=== PATIENT | female | born 1950 | race Caucasian/White ===

== ENCOUNTER 2016-04-01 11:43 | Emergency (ER) | payer SELFPAY ==
[~2016-04-01] VITALS: Ht 170.2 cm; Wt 70.0 kg
[~2016-04-01 11:43] MED LIST: ASPI81TA3 PO; ATOR20TA38 PO; MULT-552 PO; OMEG-135 PO
[2016-04-01 11:51] VITALS: Ht 170.2 cm; Wt 70.0 kg
== END 2016-04-01 15:30 | disposition left against medical advice (07) ==
LOC: E/R 11:43
DX: Z53.21 Procedure and treatment not carried out due to patient leaving prior to being seen by health care provider (principal)

== ENCOUNTER 2016-04-22 05:35 | Day surgery (SDC) | payer MEDICARE ==
[~2016-04-22] VITALS: Ht 170.2 cm; Wt 69.0 kg
[2016-04-22] VITALS (7 sets, daily range): BP systolic 89–128; BP diastolic 59–66; PULSE 67–76; RESP 16–40; Ht 170.2 cm; Wt 69.0 kg
--- NOTE | 2016-04-22 06:30 | PREOPHP ---
DATE OF ADMISSION: 04/22/2016 HISTORY OF PRESENT ILLNESS: This 66-year-old patient is admitted for elective cataract surgery of t he right eye. The patient has had decreased vision in both eyes over the past years' time and has r ecently had more significant loss of vision in the left eye. She was sent for retinal consultation and found to have wet form of age-related macular degeneration in the left eye. This has been treat ed with Avastin intravitreal injections with improvement over the past 6 weeks' time and patient is scheduled to have some additional injections in order to resolve the problem. The patient also has evidence of mild dry age-related macular degeneration in the right eye. The patient's systemic hist ory is positive for hypertension. CURRENT MEDICATIONS: The patient is currently on lisinopril. ALLERGIES: THERE ARE NO KNOWN ALLERGIES. PHYSICAL EXAMINATION: Visual acuity with best correction is 20/40 in the right eye and finger count ing in the left eye. Slit lamp examination reveals anterior cortical nuclear sclerotic and posterio r subcapsular cataract changes present in both eyes. Applanation tonometry is 16 mmHg. Examination of the retina reveals drusen in the macular region in the right eye. The left eye has evidence of fluid in the macular region. DIAGNOSIS: Cataract, both eyes. PLAN: Cataract extraction with lens implant, right eye. The risks and alternatives to the surgery have been discussed with the patient as well as the potential limitation for full visual correction following cataract surgery due to the macular degeneration in the right eye. The patient understand s this and agrees to proceed with surgery in hopes of improving activities of daily living through i mprovement of visual acuity. Dictated By: BRADFORD NAVAS/STEFANI Conf#: [id number] DID#: [id number]
[2016-04-22] MEDS ORDERED: CIPROFLOXACIN 0.3% 2.5 ML OPH OPER SCH (07:00)
[2016-04-22] MEDS ORDERED: CYCLOPENTOLATE/PHENYLEPH 2 ML OPH OPER SCH (07:00)
[2016-04-22] MEDS ORDERED: TROPICAMIDE 1% 2 ML OPH OPER SCH (07:00)
[2016-04-22] MEDS ORDERED: DICLOFENAC 0.1% 2.5 ML OPH OPER SCH (07:00)
[2016-04-22] MEDS ORDERED: LISI-313 PO (07:37)
[2016-04-22] MEDS ORDERED: CARBACHOL 0.01% 1.5 ML OPH INJ ONE (08:11)
[2016-04-22] MEDS ORDERED: LIDOCAINE 4% (MPF) 5 ML INJ ONE (08:11)
[2016-04-22] MEDS ORDERED: HYALURONATE/CHONDROITIN 1ML OPH INJ ONE (08:11)
[2016-04-22] MEDS ORDERED: DEXAMETHASONE 4 MG/ML 1 ML INJ ONE (08:11)
[2016-04-22] MEDS ORDERED: FENTAnyl 50 MCG/ML VIAL ONE (08:24)
[2016-04-22] MEDS ORDERED: PROPOFOL 20 ML ONE (08:24)
[2016-04-22] MEDS ORDERED: CEFAZOLIN 1 GM INJ INJ ONE (08:46)
[2016-04-22] MEDS ORDERED: METOCLOPRAMIDE 10 MG INJ IV PRN (09:00)
[2016-04-22] MEDS ORDERED: ONDANSETRON 4 MG INJ IV PRN (09:00)
[2016-04-22] MEDS ORDERED: HYDROmorphONE (0.2 MG/ML) 10ML SYG IV PRN ×3 (09:00)
[2016-04-22] MEDS ORDERED: ACETAMINOPHEN 325 MG TAB PO ONE (10:00)
--- NOTE | 2016-04-22 11:59 | OPR ---
DATE OF OPERATION: 04/22/2016 PREOPERATIVE DIAGNOSIS: Cataract, right eye. POSTOPERATIVE DIAGNOSIS: Cataract, right eye. OPERATION PERFORMED: Cataract extraction with lens implant, right eye. SURGEON: Bradford Sanchez MD ANESTHESIA: Guillermina Stoll MD ANESTHESIA: Local standby. PROCEDURE: The patient was brought to the operating room and placed on the table with an IV in plac e and the patient attached to an front desk monitor. Oxygen was given via face mask. After some intravenous sedation was administered, local anesthesia was given using Xylocaine 2% with epinephrine, mixed with Marcaine 0.5%. This was given in a lid block and retrobulbar injection. The patient was then prepped and draped in the usual sterile manner. A wire lid speculum was inserted between the lids of the right eye. A Superblade was used to enter t he anterior chamber at the corneoscleral limbus at the 10:30 o'clock position. A separate incision w as made using a 3.0-mm keratome which entered the corneoscleral junction at the 12 o'clock position. Through this 3-mm opening, an irrigating cystotome was introduced into the anterior chamber. The ch david was filled with Viscoat and an anterior capsulotomy was performed. Balanced salt solution was then used for hydrodissection of the lens. A phacoemulsification handpiece was then brought into th e field and introduced into the anterior chamber. The lens nucleus was emulsified using a deep groov e and cracking the nucleus into quadrants. Following this, each quadrant was aspirated and emulsifie d at the pupillary margin. After this was completed, the irrigation/aspiration handpiece was brought to the field, introduced i nto the posterior chamber, and the lens cortical material was removed. When this was completed, yazmin tional Viscoat was injected into the anterior and posterior chambers. The 3-mm opening had its internal lips enlarged, and then the posterior chamber intraocular lens remington suring 22.5 diopters (Bausch and Lomb model LI61AO) was then injected into the posterior chamber usi ng the lens injector system. After the leading haptic was introduced into the capsular bag and the l ens optic was present in the center of the eye, the injector was removed and the trailing haptic was grasped with non-toothed forceps and introduced into the capsular fold superiorly. A Sinskey hook w as then used to rotate the intraocular lens so that the lips were oriented in the horizontal meridia n. One 10-0 nylon suture was placed across the wound. Prior to tying, the irrigation/aspiration handpiece was reintroduced into the anterior chamber to re move the Viscoat. Miochol was instilled to constrict the pupil, and then the 10-0 nylon suture was t ied. The ends were cut short and then the knot was buried. Then, 0.5 mL of dexamethasone and 0.5 mL of Ancef were injected into the sub-Tenon space in the infe rior fornix. Ciloxan drops were then placed on the surface of the eye. The speculum was removed and a patch was applied. The patient then left the operating room in satisfactory condition. Dictated By: BRADFORD NAVAS/STEFANI Conf#: [id number] DID#: [id number]
== END 2016-04-22 09:32 | disposition home or self-care (01) ==
LOC: SDS 05:35
PROVIDERS: ATTEND Ophthalmology
DX: H25.11 Age-related nuclear cataract, right eye (principal); I10 Essential (primary) hypertension
CPT/HCPCS: 66984; J0690; J1100; J3010; V2632

== ENCOUNTER 2016-11-21 10:06 | Emergency (ER) | payer SELFPAY ==
[~2016-11-21] VITALS: Ht 165.1 cm; Wt 66.5 kg
[~2016-11-21 10:06] MED LIST changes: -ASPI81TA3 PO; -ATOR20TA38 PO; +LISI-313 PO; -MULT-552 PO; -OMEG-135 PO
[2016-11-21 10:15] VITALS: Ht 165.1 cm; Wt 66.5 kg
== END 2016-11-21 11:56 | disposition left against medical advice (07) ==
LOC: FTE 10:06
DX: Z53.21 Procedure and treatment not carried out due to patient leaving prior to being seen by health care provider (principal)

== ENCOUNTER 2016-11-27 13:26 | Emergency (ER) | payer SELFPAY ==
[~2016-11-27] VITALS: Ht 170.2 cm; Wt 66.0 kg
[2016-11-27 13:27] VITALS: Ht 170.2 cm; Wt 66.0 kg
== END 2016-11-27 19:07 | disposition left against medical advice (07) ==
LOC: E/R 13:26
DX: Z53.21 Procedure and treatment not carried out due to patient leaving prior to being seen by health care provider (principal)

== ENCOUNTER 2017-01-28 14:37 | Emergency (ER) | payer MEDICARE ==
[~2017-01-28] VITALS: Ht 170.2 cm; Wt 67.0 kg
[2017-01-28 14:39] VITALS: Ht 170.2 cm; Wt 67.0 kg
[2017-01-28] MEDS ORDERED: METHYLPREDNISOLONE 125 MG INJ IV STA (15:56)
[2017-01-28] MEDS ORDERED: IPRATROPIUM (NEB) 0.5 MG/2.5 ML AMP NEB STA (15:56)
[2017-01-28] MEDS ORDERED: ALBUTEROL 0.083% (NEB) 2.5 MG/3 ML AMP NEB STA (15:56)
--- NOTE | 2017-01-28 16:21 | RADRPT ---
PROCEDURE: XR Chest. CLINICAL INDICATION: chest pain TECHNIQUE: Single frontal view of the chest was obtained COMPARISON: CR CHEST 12/13/2014 FINDINGS: The heart and mediastinum are within normal limits. The lungs are clear. There is no pleural effusion or pneumothorax. RPTAT: AA IMPRESSION: No acute disease. .Eduard Collado MD, MD Date Time Electronically viewed and signed by .Eduard Collado MD, MD on 01/28/2017 16:21 .S/
[2017-01-28 16:23] LABS: BASOPHILS % 0.6 % (0.0-2.0); EOSINOPHILS # 0.2 10^3/ul (0.0-0.5); EOSINOPHILS % 2.4 % (0.0-7.0); HEMATOCRIT 37.4 % (37.0-47.0); LYMPHOCYTES # 2.3 10^3/ul (0.8-2.9); LYMPHOCYTES % 36.4 % (15.0-51.0); MEAN CORPUSCULAR HEMOGLOBIN 30.6 pg (29.0-33.0); MEAN CORPUSCULAR HGB CONC 34.8 g/dl (32.0-37.0); MEAN PLATELET VOLUME 10.5 fl (7.4-10.4); MONOCYTE # 0.4 10^3/ul (0.3-0.9); MONOCYTES % 5.7 % (0.0-11.0); NEUTROPHIL # 3.5 10^3/ul (1.6-7.5); NEUTROPHILS % 54.7 % (39.0-77.0); PLATELET COUNT 276 10^3/UL (140-415); RED BLOOD COUNT 4.25 10^6/ul (4.20-5.40); RED CELL DISTRIBUTION WIDTH 12.2 % (11.5-14.5); WHITE BLOOD COUNT 6.3 10^3/ul (4.8-10.8)
[2017-01-28 16:46] LABS: ANION GAP 14 (8-16); BLOOD UREA NITROGEN 10 mg/dl (7-20); CALCIUM 9.7 mg/dl (8.4-10.2); CARBON DIOXIDE 28 mmol/L (21-31); CHLORIDE 104 mmol/L (97-110); CREATININE 0.75 mg/dl (0.44-1.00); GLUCOSE 98 mg/dl (70-220); POTASSIUM 3.6 mmol/L (3.5-5.1); SODIUM 142 mmol/L (135-144)
[2017-01-28 16:58] LABS: B-TYPE NATRIURETIC PEPTIDE 405 PG/ML (0-125)
[2017-01-28 17:04] LABS: TROPONIN-I < 0.012 ng/ml (0.00-0.12)
--- NOTE | 2017-01-28 17:53 | ERD ---
ER Documentation Chief Complaint Chief Complaint CHEST PAIN/TIGHTNESS, BLURRED VISION, ANXIETY HPI This is a 67-year-old female who presents to the emergency room for evaluation of chest pain. She states that it is located in the center of her chest and is been constant for the past 24 hours with no radiation. The patient states that she does have a history of hypertension and is taking lisinopril 5 mg, she also states that she was on hydrochlorothiazide 25 mg daily however her primary care physician stopped her medication approximately 2 days ago. She states that her primary care physician is Dr. Cruz. She states her chest pain is sometimes worse with exertion, relieved with rest and she came to the ER today for evaluation. This patient is denying any active palpitations or chest pain at this time while sitting down. ROS All systems reviewed and are negative except as per history of present illness. Medications Home Meds Reported Medications Lisinopril* (Lisinopril*) 5 Mg Tablet, 5 MG PO DAILY, #30 TAB 04/22/16 Allergies Allergies: Coded Allergies: No Known Allergy (Unverified , 04/22/16) PMhx/Soc History of Surgery: Yes (gall bladder, right breast cyst, ) Anesthesia Reaction: No Hx Neurological Disorder: No Hx Respiratory Disorders: No Hx Cardiac Disorders: Yes (htn, mitral valve stenosis) Hx Psychiatric Problems: No Hx Miscellaneous Medical Probl: No Hx Alcohol Use: No Hx Substance Use: No Hx Tobacco Use: No Smoking Status: Former smoker Physical Exam Vitals Vital Signs Date Time Temp Pulse Resp B/P Pulse Ox O2 Delivery O2 Flow Rate FiO2 01/28/17 16:42 77 18 125/85 99 Room Air 01/28/17 16:13 80 18 96 21 01/28/17 14:39 98.8 84 18 156/76 100 Physical Exam INITIAL VITAL SIGNS: Reviewed by me GENERAL: The patient is well developed and appropriate for usual state of health in no apparent distress HEENT: Pupils equal, round, and reactive to light. EOMI. There is no scleral icterus. NECK: C-spine is soft and supple, there is no meningismus. There is no cervical lymphadenopathy. LUNGS: Mild end expiratory wheezing bilaterally HEART: Regular rate and rhythm, no murmurs, clicks, rubs or gallops. ABDOMEN: Soft, non-tender, non-distended. There are bowel sounds in all four quadrants. No rebound or guarding. EXTREMITIES: There is no peripheral cyanosis or edema. No focal swelling or erythema. NEUROLOGICAL: The patient moves all four extremities with 5/5 strength. Cranial nerves II - XII are intact. Normal gait. Alert and oriented SKIN: There is no apparent rash or petechiae. HEME/LYMPHATIC: There is no evidence of excessive bruising or lymphedema. PSYCHIATRIC: The patient does not appear anxious or depressed. Result Diagram: 01/28/17 1605 01/28/17 1605 Results 24 hrs Laboratory Tests Test 01/28/17 16:05 White Blood Count 6.310^3/ul Red Blood Count 4.2510^6/ul Hemoglobin 13.0g/dl Hematocrit 37.4% Mean Corpuscular Volume 88.0fl Mean Corpuscular Hemoglobin 30.6pg Mean Corpuscular Hemoglobin Concent 34.8g/dl Red Cell Distribution Width 12.2% Platelet Count 74790^3/UL Mean Platelet Volume 10.5fl Neutrophils % 54.7% Lymphocytes % 36.4% Monocytes % 5.7% Eosinophils % 2.4% Basophils % 0.6% Nucleated Red Blood Cells % 0.0/100WBC Neutrophils # 3.510^3/ul Lymphocytes # 2.310^3/ul Monocytes # 0.410^3/ul Eosinophils # 0.210^3/ul Basophils # 0.010^3/ul Nucleated Red Blood Cells # 0.010^3/ul Sodium Level 142mmol/L Potassium Level 3.6mmol/L Chloride Level 104mmol/L Carbon Dioxide Level 28mmol/L Anion Gap 14 Blood Urea Nitrogen 10mg/dl Creatinine 0.75mg/dl Glucose Level 98mg/dl Calcium Level 9.7mg/dl Troponin I < 0.012ng/ml B-Type Natriuretic Peptide 405PG/ML Current Medications Medications (Trade) Dose Ordered Sig/Margaret Route PRN Reason Start Time Stop Time Status Last Admin Dose Admin Albuterol (Proventil 0.083% (Neb)) 5 mg ONCE STAT NEB 01/28/17 15:56 01/28/17 15:57 DC 01/28/17 16:09 Ipratropium [place] (Atrovent 0.02% (Neb)) 0.5 mg ONCE STAT NEB 01/28/17 15:56 01/28/17 15:57 DC 01/28/17 16:09 Methylprednisolone Sodium Succinate (Solu-Medrol) 125 mg ONCE STAT IV 01/28/17 15:56 01/28/17 15:57 DC 01/28/17 16:15 Procedures/MDM EKG: Rate/Rhythm: [Normal Sinus Rhythm] QRS, ST, T-waves: [No changes consistent w/ acute ischemia] Impression: [No evidence of ischemia or arrhythmia] Chest X-ray 1V Interpreted by me: Soft Tissue: No acute abnormalities Bones: No acute abnormalities Mediastinum/Cardiac Silhouette/Lungs: [No acute abnormalities] This 67-year-old female presents to the ER for evaluation of chest pain and discomfort that is been present for approximately 24 hours and has been constant in nature. The patient denies any radiation of her chest pain. This patient's EKG shows a normal sinus rhythm with no ST elevations or ST depressions. This patient's first troponin is negative. This patient has a heart score of 3. I have contacted this patient's primary care physician and spoken to the physician on-call, Dr. Valdes. 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 I have relayed this information to the patient who feels comfortable with this plan of care. The patient states she would rather follow-up in office and stay in the hospital. I did offer her admission versus outpatient follow-up and she again shows outpatient follow-up. This patient was advised she can return to the ER any moment for reevaluation and she verbalized understanding. She did have mild wheezing on my examination which could be contributing to her symptoms. She was given a breathing treatment and has no wheezing at this time. Departure Diagnosis: Primary Impression: Chest pain Additional Impression: Wheezing on expiration Condition: Stable SUDEEPPOONAM WILLIAMSONCLAU Jan 28, 2017 17:53
[2017-01-28] MEDS ORDERED: ASPIRIN 325 MG TAB PO ONE (18:00)
[2017-01-28] MEDS ORDERED: ALBU8.5H3 INH (18:14)
[2017-01-28 18:36] VITALS: BP 138/75; PULSE 77; RESP 18
== END 2017-01-28 18:36 | disposition home or self-care (01) ==
LOC: E/R 14:37
DX: R07.9 Chest pain, unspecified (principal); R40.2252 Coma scale, best verbal response, oriented, at arrival to emergency department; R06.2 Wheezing; I10 Essential (primary) hypertension; R40.2142 Coma scale, eyes open, spontaneous, at arrival to emergency department; R40.2362 Coma scale, best motor response, obeys commands, at arrival to emergency department; Z87.891 Personal history of nicotine dependence
CPT/HCPCS: 36415; 71010; 80048; 83880; 84484; 85025; 93005; 94664; 96374; 99285; J2930

== ENCOUNTER 2017-02-01 11:44 | Emergency (ER) | payer MEDICARE ==
[~2017-02-01] VITALS: Ht 154.9 cm; Wt 78.0 kg
[~2017-02-01 11:44] MED LIST changes: +ALBU8.5H3 INH
[2017-02-01 11:57] VITALS: Ht 154.9 cm; Wt 78.0 kg
[2017-02-01] MEDS ORDERED: LISI20TA11 PO (12:09)
--- NOTE | 2017-02-01 12:21 | ERD ---
ER Documentation Chief Complaint Chief Complaint htn, has neck pain, shoulder pain HPI 67-year-old woman here for evaluation of hypertension, she states she has been using her medications as prescribed but diastolic blood pressure was just over 100 mmHg today. She states all week long her blood pressure has been elevated. She was recently seen and evaluated at this emergency department, workup was unremarkable and she is scheduled to see her PMD early next week. She denies chest pain or shortness of breath, no cough or wheezing, no vomiting or diarrhea , no headache or blurry vision. Patient denies weakness in her arms or legs. ROS All systems reviewed and are negative except as per history of present illness. Medications Home Meds Active Scripts Albuterol Sulfate* (Proair HFA*) 8.5 Gm Hfa.aer.ad, 2 PUFF INH Q4, #1 INHALER Prov:SYDNI GLEZ DO 01/28/17 Reported Medications Lisinopril* (Lisinopril*) 20 Mg Tablet, 20 MG PO DAILY, #30 TAB 02/01/17 Discontinued Reported Medications Lisinopril* (Lisinopril*) 5 Mg Tablet, 5 MG PO DAILY, #30 TAB 04/22/16 Allergies Allergies: Coded Allergies: No Known Allergy (Unverified , 02/01/17) PMhx/Soc Hypertension, COPD History of Surgery: Yes (gall bladder, right breast cyst, ) Anesthesia Reaction: No Hx Neurological Disorder: No Hx Respiratory Disorders: No Hx Cardiac Disorders: Yes (htn, mitral valve stenosis) Hx Psychiatric Problems: No Hx Miscellaneous Medical Probl: No Hx Alcohol Use: No Hx Substance Use: No Hx Tobacco Use: No FmHx Family History: No diabetes Physical Exam Vitals Vital Signs Date Time Temp Pulse Resp B/P Pulse Ox O2 Delivery O2 Flow Rate FiO2 02/01/17 13:06 98.9 83 18 153/78 100 Room Air 02/01/17 11:57 98.1 78 18 158/78 99 Physical Exam GENERAL: Well-developed, well-nourished, anxious HEENT: Moist mucous membranes, pink conjunctiva, no cervical spine tenderness or step-off deformities, no goiter, no jaundice or icterus, extraocular movements intact without pain. No submandibular induration, and no pharyngeal erythema NEURO: Alert and oriented 3, cranial nerves II through XII intact bilaterally, pupils equal round reactive to light, no focal deficits or facial asymmetry, sensation intact distally Strength 5/5 in upper and lower extremities bilaterally CARDIAC: Regular rate and rhythm, no murmurs rubs or gallops LUNGS: Clear bilaterally no wheezing crackles or stridor ABDOMEN: Soft nontender, no guarding, no rigidity, no rebound, no psoas sign no obturator sign. Normoactive bowel sounds SKIN: Warm and dry to touch, no abrasions, contusions, or hematomas, no lacerations, no ecchymosis, no target lesions, and without ulcers EXTREMITIES: No clubbing cyanosis or edema, calves are bilaterally symmetrical, no Homans sign, no popliteal cord sign. Distal pulses equal and bilateral PSYCH: Anxious Procedures/MDM IV line was established patient was placed on cardiac cath rn rhythm strip revealed a sinus rhythm at about 80 bpm with upright P and T waves. Patient was afebrile EKG performed, read by me: 79 bpm, normal sinus rhythm, normal axis, no acute ST segment changes, narrow QRS complex, with good R-wave progression in precordial leads. Reassurance was provided to the patient, seems her blood pressure was elevated at arrival although went down to normal during my examination. She felt much better and was reassured. She has follow-up scheduled with her PMD for early next week and is asymptomatic and without complaints at this time. Differential diagnoses considered, included but not limited to acute coronary syndrome, pulmonary embolism, aortic dissection, abdominal aortic aneurysm, sepsis, stroke, meningitis, encephalitis, pneumonia, appendicitis, cholecystitis , bowel obstruction, pyelonephritis, nephrolithiasis, cystitis, as well as metabolic, hematologic, and electrolyte abnormalities. As well as abscess, cellulitis, fractures, and dislocations. Patient feels much better at this time, and vital signs are normal, symptoms have improved. I did give strict instructions to return to the ED if symptoms continue or worsen, patient will otherwise follow-up with primary care physician. Patient understood instructions and agreed to plan. Disclaimer: Inadvertent spelling and grammatical errors are likely due to EHR/ dictation software use and do not reflect on the overall quality of patient care. Also, please note that the electronic time recorded on this note does not necessarily reflect the actual time of the patient encounter. Departure Diagnosis: Primary Impression: Hypertension Hypertension type: essential hypertension Qualified Code: I10 - Essential hypertension Condition: Good ZOHRABIAN,JAKY MD Feb 01, 2017 12:21
[2017-02-01 13:06] VITALS: BP 153/78; PULSE 83; RESP 18; TEMP 98.9
== END 2017-02-01 17:25 | disposition home or self-care (01) ==
LOC: E/R 11:44
DX: I10 Essential (primary) hypertension (principal); J44.9 Chronic obstructive pulmonary disease, unspecified
CPT/HCPCS: 93005; 99282

== ENCOUNTER 2017-10-18 12:21 | Emergency (ER) | END 2017-10-18 13:36 | disposition home or self-care (01) ==

== ENCOUNTER → 2018-07-26 | Outpatient (CLI) | payer MEDICARE, OTHER ==
[~2018-07-26] MED LIST changes: -ALBU8.5H3 INH; +ALBU8.5H8 INH; -LISI-313 PO; +LISI-471 PO
--- NOTE | 2018-07-26 10:18 | CONS ---
Assessment/Plan Assessment/Plan Hospital Course (Demo Recall) 68-year-old female with medical history of hypertension now has severe 9/10 pain of her left knee. This is secondary to osteoarthritis of the left knee. She has varus deformity. She is failing conservative treatment. I did discuss with her treatment options including left total knee arthroplasty which she would like to proceed with. Patient is a vegan and does not have a good source of protein. I would like to obtain a complete metabolic panel with total protein albumin to check these levels prior to surgery. Plan: Prescription for walker secondary to fall risk Increased protein in diet CMP Preop clearance Book for left total knee arthroplasty Consultation Date/Type/Reason Admit Date/Time Date of Consultation: July 26, 2018 Reason for Consultation Left knee pain Date/Time of Note DATE: 07/26/18 TIME: 09:57 Hx of Present Illness This is a 68-year-old female with a chief complaint of left knee pain. The pain began approximately 5 years ago and is much worse than last few months. The patients pain is in the medial and anterior aspect of the left knee. Pain is not radiating to the lower leg. The pain is rated as a 9/10. Patient denies complaints of numbness or tingling. The pain is exacerbated by climbing stairs and ambulation. Patient has been using ice, gait aids, activity modification. NSAIDs are contraindicated secondary to significant hypertension on multiple medications. Duration: 5 years. Much worse in the last few months Injury: Fell approximately 5 years ago. Told she had a "tendon" tear Walking tolerance: 0 blocks Limp: Yes Support: Cane Swelling: Yes Crepitation: Yes Instability: Yes Stairs: Cannot use Physical Therapy: No Injections: Steroid injection about 1 year ago. Only provided a week of relief NSAIDs: Conjugated secondary to hypertension Prior surgery: No Back pain: Yes Hip pain: No Risk of AVN : No Patient denies fever, chills, shortness of breath, chest pain, nausea/vomiting, constipation, diarrhea. Past Medical History Hypertension Macular degeneration Headaches Osteoporosis Frequent bloody noses Home Meds Active Scripts Albuterol Sulfate* (Proair HFA*) 8.5 Gm Hfa.aer.ad, 2 PUFF INH Q4, #1 INHALER Prov:SYDNI GLEZ DO 01/28/17 Reported Medications Lisinopril* (Lisinopril*) 20 Mg Tablet, 20 MG PO DAILY, #30 TAB 02/01/17 Allergies: Coded Allergies: No Known Allergy (Unverified , 02/01/17) Past Surgical History Cholecystectomy Cataract surgery Family History Significant Family History: no pertinent family hx Social History Alcohol Use: none Smoking Status: Former smoker Drug Use: none Exam/Review of Systems Exam Vitals Weight: 156 pounds Height: 5 foot 7 inches Temperature: 98.4 Heart Rate: 59 Blood Pressure: 114/64 Respiratory Rate: 12 Exam General: Alert, oriented x3. No Acute Distress. Heart: Regular rate and rhythm. Lungs: No respiratory distress. No accessory muscle use. Musculoskeletal: Left Knee This is a well developed female who is alert, oriented times three and in no apparent distress. Skin is intact over the left knee as well as the lower extremity with no abrasions, lacerations, or ulcerations. Observation of the patient's gait reveals a severe antalgic gait with Varus thrust. Frontal plane alignment is varus. There is pain on palpation of medial joint line and anterior aspect of the knee. The patient demonstrates grinding anteriorly with ROM. Range of motion: 20 extension to approximately 130 degrees of flexion. Collateral ligament testing reveals no instability with varus or valgus stress at 0 and 30 degrees of flexion. Negative Bhaskar's and negative posterior drawer. Neurovascularly intact with 5/5 EHL/tibialis anterior/gastroc. Sensation intact to light touch in a sural, saphenous, deep peroneal, superficial peroneal, medial and lateral plantar nerve distribution. Palpable, symmetric dorsalis pedis and posterior tibial pulses in both lower extremities. Hip examination normal. Imaging Imaging The patient received a standard set of films today that were personally reviewed. Imaging included a standing bilateral knee AP, PA flexion, merchant views and a dedicated lateral of the affected knee: There is very alignment of the knee. There is complete loss of joint space in the medial compartment and moderate loss of joint space patellofemoral compartment(s). Possibly underlying AVN of the medial femoral condyle. There is osteophyte formation. There is subchondral sclerosis. There are subchondral cysts. Degenerative changes are most severe in the medial compartment(s) KARINA HEMPHILL MD July 26, 2018 10:08
--- NOTE | 2018-07-28 12:23 | RADRPT ---
PROCEDURE: XR knees CLINICAL INDICATION: bilateral knee pain. TECHNIQUE: 4 views of the bilateral knees were obtained. COMPARISON: None. FINDINGS: Right knee: There is no acute fracture dislocation. Osseous structures are intact. There are mild to moderate osteoarthritic changes of the knee, most notable at the medial tibio-femoral compartment. T here is a small knee joint effusion. Left knee: There is no acute fracture dislocation. Osseous structures are intact. There is a 1.2 cm sclerotic lesion in the left tibial metaphysis. There are severe osteoarthritic changes of the knee, most notable at the medial tibio-femoral and patellofemoral compartments. There is moderate size knee joint effusion. IMPRESSION: 1. Xhke-qf-tsiideew right knee osteoarthritis, most notable at the medial tibio-femoral compartment. 2. Severe left knee osteoarthritis, most notable at the medial tibio-femoral and patellofemoral comp artments. 3. Small right and moderate left knee joint effusions. 4. Sclerotic left tibial metaphyseal lesion, may represent bone infarct or enchondroma. RPTAT:AAEE Physician Thomas Date Time Electronically viewed and signed by Physician Thomas on 07/28/2018 12:23 /
== END | disposition home or self-care (01) ==
LOC: HKI 09:49
PROVIDERS: ATTEND Orthopaedic Surgery Adult Reconstructive Orthopaedic Surgery
DX: M25.562 Pain in left knee (principal)
CPT/HCPCS: 73564; G0463